=== PATIENT | female | born 1985 ===

== ENCOUNTER 2017-11-25 15:20 | Emergency (ER) | payer MEDICAID ==
[2017-11-25 15:29] VITALS: BP 116/76; PULSE 68; RESP 16; TEMP 97.8; O2SAT 98
--- NOTE | 2017-11-25 16:47 | ED PDOC ---
HPI: Abdomen Time Seen by Provider: 11/25/17 15:47 Chief Complaint (Nursing): Abdominal Pain Chief Complaint (Provider): Abdominal Pain History Per: Patient Additional Complaint(s): Patient is a 32 y/o female who presents to the ED complaining of worsening abdominal pain for 3 days. Patient reports that the pain is worse on the upper left side and extends a little bit into her epigastric area. She denies nausea, vomiting, diarrhea, dysuria or fever. Patient states that she had a gastric bypass 8 years ago and about a year later she developed stomach ulcer. Patient is concerned because she feels these symptoms are similar to when she previously had a stomach ucler. Patient's last normal menstrual period was 1 month ago, she has an IUD. She additionally denies vaginal discharge, rash, and headaches. Past Medical History Reviewed: Historical Data, Nursing Documentation, Vital Signs Vital Signs: Last Vital Signs Temp 97.8 F 11/25/17 15:25 Pulse 68 11/25/17 15:25 Resp 16 11/25/17 15:25 BP 116/76 11/25/17 15:25 Pulse Ox 98 11/25/17 15:25 - Medical History PMH: Gastrointestinal Ulcer (stomach) - Family History Family History: States: Unknown Family Hx - Allergies Allergies/Adverse Reactions: Allergies Allergy/AdvReac Type Severity Reaction Status Date / Time No Known Allergies Allergy Verified 11/25/17 15:24 Review of Systems ROS Statement: Except As Marked, All Systems Reviewed And Found Negative Constitutional: Negative for: Fever Gastrointestinal: Positive for: Abdominal Pain. Negative for: Nausea, Vomiting, Diarrhea Genitourinary Female: Negative for: Dysuria, Vaginal Discharge Skin: Negative for: Rash Neurological: Negative for: Headache Physical Exam - Reviewed Nursing Documentation Reviewed: Yes Vital Signs Reviewed: Yes - Physical Exam Appears: Positive for: Non-toxic, No Acute Distress Head Exam: Positive for: ATRAUMATIC, NORMOCEPHALIC Skin: Positive for: Normal Color, Warm, Dry Eye Exam: Positive for: EOMI, Normal appearance, PERRL Neck: Positive for: Normal, Painless ROM, Supple Cardiovascular/Chest: Positive for: Regular Rate, Rhythm. Negative for: Murmur Respiratory: Positive for: Normal Breath Sounds. Negative for: Respiratory Distress Gastrointestinal/Abdominal: Positive for: Soft, Tenderness (LUQ and Epigastric tenderness to palpation; otherwise nontender). Negative for: Guarding, Rebound Back: Positive for: Normal Inspection. Negative for: L CVA Tenderness, R CVA Tenderness Extremity: Positive for: Normal ROM. Negative for: Pedal Edema, Deformity Neurologic/Psych: Positive for: Alert, Oriented. Negative for: Motor/Sensory Deficits - Laboratory Results Result Diagrams: 11/25/17 18:00 11/25/17 18:00 - ECG O2 Sat by Pulse Oximetry: 98 (RA) Pulse Ox Interpretation: Normal Medical Decision Making Medical Decision Making: Time: 16:12 Initial Impression: Abdominal Pain Initial Plan: --Work up for cause of epigastric pain --Labs --CXR to r/o free air under diaphragm --Will consider CT Abd/Pelvis if pain continues despite GI cocktail Pt walked out of the ED without re-evaluation. Per RN, pt pulled out her own IV. Labs show UA with leukocyte esterase with high epithelial cells. No recall required. Scribe Attestation: Documented by Lito Torrez acting as a scribe for Lashell Chacon MD Provider Scribe Attestation: All medical record entries made by the Scribe were at my direction and pe rsonally dictated by me. I have reviewed the chart and agree that the record accurately reflects my personal performance of the history, physical exam, medical decision making, and the department course for this patient. I have also personally directed, reviewed, and agree with the discharge instructions and disposition. Disposition - Clinical Impression Clinical Impression: Abdominal pain - Disposition Disposition: Routine/Home Disposition Time: 19:19 Condition: IMPROVED Forms: [employer] ([place]ian)
[2017-11-25 18:05] LABS: BASO # 0.1 K/uL (0.0-0.2); BASO % 0.5 % (0.0-2.0); EOS # 0.6 K/uL (0.0-0.7); EOS % 5.1 % (0.0-4.0); HEMOGLOBIN 11.8 g/dL (12.0-16.0); LYMPH # 2.8 K/uL (1.0-4.3); LYMPH % 25.9 % (20.0-40.0); MEAN CORPUSCULAR HEMOGLOBIN 25.1 pg (27.0-31.0); MEAN CORPUSCULAR HGB CONC 32.5 g/dL (33.0-37.0); MEAN PLATELET VOLUME 9.4 fl (7.2-11.7); MONO % 9.4 % (0.0-10.0); NEUT # 6.4 K/uL (1.8-7.0); NEUT % 59.1 % (50.0-75.0); NRBC % 0.1 % (0.0-0.0); RBC 4.71 Mil/uL (3.80-5.20); RED CELL DISTRIBUTION WIDTH 15.5 % (11.5-14.5); WHITE BLOOD COUNT 10.8 K/uL (4.8-10.8)
[2017-11-25 18:07] LABS: SQUAMOUS EPITHIAL 7 /hpf (0-5); URINE BILIRUBIN NEGATIVE (NEGATIVE); URINE BLOOD NEGATIVE (NEGATIVE); URINE CLARITY SLIGHTY-CLOUDY (Clear); URINE COLOR YELLOW (YELLOW); URINE GLUCOSE (UA) NEG (Normal); URINE LEUKOCYTE ESTERASE LARGE Leu/uL (Negative); URINE PROTEIN NEGATIVE (NEGATIVE); URINE UROBILINOGEN 0.2-1.0 mg/dL (0.2-1.0)
[2017-11-25 18:11] LABS: VENOUS BLOOD GAS BASE EXCESS 0.4 mmol/L (0.0-2.0); VENOUS BLOOD GAS PCO2 55 mmHg (40-60); VENOUS BLOOD GAS PO2 22 mm/Hg (30-55); VENOUS BLOOD PH 7.31 (7.32-7.43)
[2017-11-25 18:16] LABS: ALB/GLOB RATIO 1.2 (1.0-2.1); ALBUMIN 4.4 g/dL (3.5-5.0); ALT/SGPT 19 U/L (9-52); AST/SGOT 44 U/L (14-36); BLOOD UREA NITROGEN 13 mg/dl (7-17); GFR NON-AFRICAN AMERICAN > 60; LIPASE 74 U/L (23-300)
[2017-11-25 18:19] LABS: INR 1.1; PROTHROMBIN TIME 11.8 Seconds (9.8-13.1)
[2017-11-25 18:22] LABS: PARTIAL THROMBOPLASTIN TIME 28.5 Seconds (25.6-37.1)
--- NOTE | 2017-11-26 13:39 | RAD ---
Date of service: 11/25/2017 HISTORY: rule out free air COMPARISON: Okay so I would like edema TECHNIQUE: Chest PA and lateral FINDINGS: LUNGS: No active pulmonary disease. PLEURA: No significant pleural effusion identified. No pneumothorax apparent. CARDIOVASCULAR: Normal. OSSEOUS STRUCTURES: No significant abnormalities. VISUALIZED UPPER ABDOMEN: Normal. OTHER FINDINGS: None. IMPRESSION: No active disease.
== END 2017-11-25 19:15 | disposition left against medical advice (07) ==
LOC: H.ER 15:20
DX: R10.13 Epigastric pain (principal)
CPT/HCPCS: 71046; 80053; 81003; 81025; 82803; 83690; 85025; 85610; 85730; 86850; 86900; 96374; 96375; 99283; J2765